=== PATIENT | male | born 1955 | race Two or more races ===

== ENCOUNTER 2021-05-16 17:58 | Inpatient (IN) | payer MEDICARE, MEDICAID ==
[~2021-05-16] VITALS: Ht 175.3 cm; Wt 64.0 kg
[~2021-05-16 17:58] MED LIST: P20 MT
[2021-05-16] MEDS ORDERED: IPRATROPIUM BROMIDE (0.02%) 0.5MG/2.5ML NEB HHN STA (18:53)
[2021-05-16] MEDS ORDERED: ALBUTEROL (0.083%) 2.5MG/3ML NEB HHN STA (18:53)
[2021-05-16] MEDS ORDERED: METHYLPREDNISOLONE SOD SUCC 125 MG/2 ML VIAL IV STA (18:53)
[2021-05-16] MEDS ORDERED: MAGNESIUM 2 G PREMIX 50 ML IV ONE (19:00)
[2021-05-16 19:30] LABS: BASOPHILS % 0.8 % (0.0-2.0); EOSINOPHILS % 1.9 % (0.0-5.0); HEMATOCRIT. 37.5 % (42.0-52.0); HEMOGLOBIN. 12.3 g/dL (14.0-18.0); LYMPHOCYTES % 35.7 % (20.0-50.0); MEAN CORPUSCULAR HEMOGLOBIN 27.3 pg (28.0-32.0); MEAN CORPUSCULAR VOLUME 83.7 fL (80.0-94.0); MONOCYTES % 8.8 % (2.0-8.0); NEUTROPHILS % 52.8 % (40.0-76.0); PLATELET 280 x1000/uL (130-400); RED BLOOD CELL COUNT 4.49 mill/uL (4.7-6.1); RED CELL DISTRIBUTION WIDTH 20.9 % (11.6-14.6)
[2021-05-16 19:33] LABS: CHLORIDE 105 mEq/L (98-107)
[2021-05-16] MEDS ORDERED: CEFTRIAXONE 1 G PREMIX 50 ML IV ONE (20:45)
[2021-05-16] MEDS ORDERED: AZITHROMYCIN 500MG/250ML 250 ML IV ONE (20:45)
[2021-05-16 21:15] LABS: CLARITY URINE CLEAR (CLEAR); COLOR URINE YELLOW (YELLOW); KETONES URINE NEGATIVE (NEGATIVE); LEUKOCYTE ESTERASE URINE NEGATIVE (NEGATIVE); NITRITE URINE NEGATIVE (NEGATIVE); OCCULT BLOOD URINE NEGATIVE (NEGATIVE); PH URINE 6.5 (4.5-8.0); PROTEIN URINE NEGATIVE (NEGATIVE); SPECIFIC GRAVITY URINE 1.009 (1.005-1.030); UROBILINOGEN URINE 0.2 E.U./dL (0.2-1.0)
[2021-05-16] MEDS: LIDOCAINE 5% PATCH TOP SCH (22:45)
[2021-05-16] MEDS ORDERED: ACETAMINOPHEN 325MG TABLET PO ONE (22:45)
[2021-05-17] MEDS: LIDOCAINE 5% PATCH TOP SCH (08:50)
[2021-05-17] MEDS ORDERED: ONDANSETRON HCL 4MG/2ML INJ IV PRN (10:30)
[2021-05-17] MEDS ORDERED: ACETAMINOPHEN 325MG TABLET PO PRN (10:30)
[2021-05-17] MEDS: METHYLPREDNISOLONE SOD SUCC 40 MG/ML VIAL IV SCH ×3 (10:56→21:07)
[2021-05-17] MEDS: ALBUTEROL 6.7GM HFA INHALER ORI PRN (11:02)
[2021-05-17] MEDS: LEVOFLOXACIN 500MG PREMIX 100 ML IV SCH (11:52)
[2021-05-17] MEDS: AMLODIPINE 10MG TABLET PO SCH (11:55)
[2021-05-17] MEDS ORDERED: ENOXAPARIN 40MG/0.4ML SYR SUBCUT SCH (20:00)
[2021-05-18] MEDS: METHYLPREDNISOLONE SOD SUCC 40 MG/ML VIAL IV SCH ×2 (05:29→14:33)
[2021-05-18] MEDS: AMLODIPINE 10MG TABLET PO SCH (08:56)
[2021-05-18] MEDS: ALBUTEROL 6.7GM HFA INHALER ORI PRN (09:45)
[2021-05-18] MEDS: LEVOFLOXACIN 500MG PREMIX 100 ML IV SCH (11:21)
[2021-05-18] MEDS ORDERED: P20 MT (12:39)
[2021-05-18] MEDS ORDERED: IPRA3AMP9 NEB (12:39)
[2021-05-18] MEDS ORDERED: FLUT1DIS3 INH (12:39)
[2021-05-18] MEDS ORDERED: ALBU18HF2 IH (12:39)
[2021-05-18 17:15] VITALS: BP 142/86
[2021-05-20] MEDS ORDERED: LEVOFLOXACIN 500MG TABLET PO SCH (11:00)
== END 2021-05-18 17:15 | disposition home or self-care (01) | DRG 133 ==
LOC: ER 17:58 → MICUSO 23:00 → CANBEDREQ 05-18 21:12
PROVIDERS: ADMIT Internal Medicine Pulmonary Disease; ATTEND Internal Medicine Pulmonary Disease
DX: J96.20 Acute and chronic respiratory failure, unspecified whether with hypoxia or hypercapnia (principal); U07.1 COVID-19; J44.1 Chronic obstructive pulmonary disease with (acute) exacerbation; D64.9 Anemia, unspecified; I10 Essential (primary) hypertension; E11.9 Type 2 diabetes mellitus without complications; K40.90 Unilateral inguinal hernia, without obstruction or gangrene, not specified as recurrent; Z79.899 Other long term (current) drug therapy; Z87.891 Personal history of nicotine dependence
CPT/HCPCS: 36415; 71045; 76870; 80053; 81003; 83880; 84484; 85025; 87426; 93005; 93976; 94640; 99285; J0456; J0696; J1650; J1956; J2920; J2930; J3475; U0003; U0005

== ENCOUNTER 2021-08-11 16:50 | Inpatient (IN) | payer MEDICARE, OTHER ==
[~2021-08-11] VITALS: Ht 180.3 cm; Wt 56.7 kg
[~2021-08-11 16:50] MED LIST changes: +ALBU18HF2 IH; +DIAZ10TA PO; +FLUT1DIS3 INH; +HYDR-4009 MT; +IPRA3AMP9 NEB; +LEVO750T46 MT; +MED4 MT; -P20 MT
[2021-08-11] MEDS ORDERED: METHYLPREDNISOLONE SOD SUCC 125 MG/2 ML VIAL IV ONE (17:00)
[2021-08-11] MEDS ORDERED: ALBUTEROL (0.083%) 2.5MG/3ML NEB HHN ONE (17:00)
[2021-08-11] MEDS ORDERED: CEFTRIAXONE 1 G PREMIX 50 ML IV ONE (17:15)
[2021-08-11] MEDS ORDERED: AZITHROMYCIN 500 MG in DEXT 5% WATER 250 ML IV SCH (17:15)
[2021-08-11 17:16] LABS: BASOPHILS % 0.2 % (0.0-2.0); EOSINOPHILS % 0.7 % (0.0-5.0); HEMATOCRIT. 36.3 % (42.0-52.0); HEMOGLOBIN. 12.1 g/dL (14.0-18.0); LYMPHOCYTES % 17.9 % (20.0-50.0); MEAN CORPUSCULAR HEMOGLOBIN 26.4 pg (28.0-32.0); MEAN CORPUSCULAR VOLUME 79.2 fL (80.0-94.0); MONOCYTES % 8.8 % (2.0-8.0); NEUTROPHILS % 72.4 % (40.0-76.0); PLATELET 265 x1000/uL (130-400); RED BLOOD CELL COUNT 4.59 mill/uL (4.7-6.1); RED CELL DISTRIBUTION WIDTH 20.9 % (11.6-14.6)
[2021-08-11 17:22] LABS: CHLORIDE 96 mEq/L (98-107)
[2021-08-11] MEDS ORDERED: SODIUM CHLORIDE 0.9% 1,000 ML IV ONE (17:30)
[2021-08-11 17:38] LABS: BG BASE EXCESS 3.3 mmol/L (-2.0-2.0); BG CARBOXYHEMOGLOBIN 2.5 % (0.5-1.5); BG DEOXYHEMOGLOBIN 0.3 % (0.0-5.0); BG FRACTION INSPIRED OXYGEN 50; BG HCO3 ACT 30.2 mmol/L (22.0-26.0); BG METHEMOGLOBIN 0.1 % (0.0-1.5); BG OXYGEN SATURATION 99.7 % (92.0-98.5); BG OXYHEMOGLOBIN 97.1 % (94.0-97.0); BG PCO2 56.4 mmHg (35.0-45.0); BG PH 7.346 (7.350-7.450); BG PO2 170.1 mmHg (75.0-100.0); BG SAMPLE SITE RIGHT RADIAL; BG TOTAL HEMOGLOBIN 12.2 g/dL (12.0-18.0); BG VENT MODE MASK - BIPAP
[2021-08-11] MEDS ORDERED: CEFTRIAXONE 1,000 MG in DEXTROSE 5% WATER 50 ML IV SCH ×2 (18:00→23:00)
[2021-08-11 21:52] VITALS: BP 161/88
[2021-08-11 22:17] VITALS: BP 161/88
[2021-08-11] MEDS ORDERED: CLONIDINE 0.1MG TABLET PO PRN (22:45)
[2021-08-11] MEDS: LORAZEPAM 0.5MG TABLET PO PRN (23:23)
[2021-08-11] MEDS: OXYCODONE HCL 5MG TABLET PO PRN (23:23)
[2021-08-11] MEDS: METHYLPREDNISOLONE SOD SUCC 40 MG/ML VIAL IV SCH (23:24)
[2021-08-12] VITALS: BP 157/95
[2021-08-12 01:37] LABS: CREATINE KINASE 179 IU/L (39-308)
[2021-08-12 01:38] LABS: CREATINE KINASE MB FRACTION 4.7 ng/mL (0.5-3.6)
[2021-08-12 02:36] LABS: *AMPHETAMINES SCREEN URINE NEGATIVE (NEGATIVE); *COCAINE SCREEN URINE NEGATIVE (NEGATIVE); CANNABINOID URINE SCREEN NEGATIVE (NEGATIVE); METHADONE URINE SCREEN NEGATIVE (NEGATIVE); OPIATES URINE SCREEN NEGATIVE (NEGATIVE); PHENCYCLIDINE URINE SCREEN NEGATIVE (NEGATIVE)
[2021-08-12 02:37] LABS: *BARBITURATES SCREEN URINE NEGATIVE (NEGATIVE); *BENZODIAZEPINES SCREEN URINE NEGATIVE (NEGATIVE)
[2021-08-12 04:00] VITALS: BP 150/85
[2021-08-12] MEDS: OXYCODONE HCL 5MG TABLET PO PRN (05:51)
[2021-08-12] MEDS: METHYLPREDNISOLONE SOD SUCC 40 MG/ML VIAL IV SCH ×3 (05:52→23:07)
[2021-08-12 08:00] VITALS: BP 118/88
[2021-08-12 08:15] LABS: CHLORIDE 96 mEq/L (98-107)
[2021-08-12 08:17] LABS: HEMATOCRIT 36.9 % (42.0-52.0); HEMOGLOBIN 12.1 g/dL (14.0-18.0); MEAN CORPUSCULAR VOLUME 79.5 fL (80.0-94.0); PLATELET 239 x1000/uL (130-400); RED BLOOD CELL COUNT 4.64 mill/uL (4.7-6.1)
[2021-08-12] MEDS: PANTOPRAZOLE SODIUM 40 MG/VIAL IV SCH (08:44)
[2021-08-12] MEDS: ENOXAPARIN 40MG/0.4ML SYR SUBCUT SCH (08:45)
[2021-08-12] MEDS: LORAZEPAM 0.5MG TABLET PO PRN (11:01)
[2021-08-12] MEDS ORDERED: NALOXONE HCL 1 MG/ML 2ML VIAL IV PRN (11:15)
[2021-08-12 11:19] LABS: BG BASE EXCESS 4.9 mmol/L (-2.0-2.0); BG CARBOXYHEMOGLOBIN 0.8 % (0.5-1.5); BG DEOXYHEMOGLOBIN 3.4 % (0.0-5.0); BG HCO3 ACT 29.5 mmol/L (22.0-26.0); BG METHEMOGLOBIN 0.1 % (0.0-1.5); BG OXYGEN SATURATION 96.6 % (92.0-98.5); BG OXYHEMOGLOBIN 95.7 % (94.0-97.0); BG PCO2 43.7 mmHg (35.0-45.0); BG PH 7.447 (7.350-7.450); BG PO2 76.1 mmHg (75.0-100.0); BG SAMPLE SITE RIGHT BRACHIAL; BG VENT MODE NASAL CANNULA
[2021-08-12 12:00] VITALS: BP 143/77
[2021-08-12] MEDS: HYDROCODONE/ACETAMINOPHEN 10/325MG TABLET PO PRN ×2 (12:16→18:19)
[2021-08-12 16:00] VITALS: BP 138/82
[2021-08-12] MEDS ORDERED: CALCIUM CARBONATE 500MG TABLET CHEW PO PRN (17:00)
[2021-08-12] MEDS ORDERED: AZITHROMYCIN 500 MG in DEXT 5% WATER 250 ML IV SCH (17:00)
[2021-08-12] MEDS: NICOTINE 14MG PATCH TD SCH (17:16)
[2021-08-12] MEDS ORDERED: CEFTRIAXONE 1,000 MG in DEXTROSE 5% WATER 50 ML IV SCH (18:00)
[2021-08-12] MEDS: IPRATROPIUM/ALBUTEROL 0.5-3(2.5)MG/3ML NEB HHN PRN ×2 (18:34→21:54)
[2021-08-12 20:00] VITALS: BP 140/70
[2021-08-12] MEDS ORDERED: NALOXONE HCL 0.4MG/ML VIAL IV PRN (23:15)
[2021-08-13] VITALS: BP 141/78
[2021-08-13] MEDS: HYDROCODONE/ACETAMINOPHEN 10/325MG TABLET PO PRN ×4 (00:20→21:44)
[2021-08-13] MEDS: IPRATROPIUM/ALBUTEROL 0.5-3(2.5)MG/3ML NEB HHN PRN ×2 (01:36→09:10)
[2021-08-13 04:00] VITALS: BP 146/71
[2021-08-13] MEDS: LORAZEPAM 0.5MG TABLET PO PRN ×3 (04:37→21:32)
[2021-08-13] MEDS: HYDROCODONE/ACETAMINOPHEN 5/325MG TABLET PO PRN (04:38)
[2021-08-13] MEDS: METHYLPREDNISOLONE SOD SUCC 40 MG/ML VIAL IV SCH ×3 (05:52→21:45)
[2021-08-13 06:11] LABS: CHLORIDE 96 mEq/L (98-107)
[2021-08-13 06:12] LABS: BASOPHILS % 0.1 % (0.0-2.0); HEMATOCRIT. 35.8 % (42.0-52.0); HEMOGLOBIN. 11.8 g/dL (14.0-18.0); LYMPHOCYTES % 9.6 % (20.0-50.0); MEAN CORPUSCULAR HEMOGLOBIN 25.8 pg (28.0-32.0); MEAN CORPUSCULAR VOLUME 78.3 fL (80.0-94.0); MEAN PLATELET VOLUME 8.2 fl (7.4-10.4); MONOCYTES % 5.9 % (2.0-8.0); NEUTROPHILS % 84.4 % (40.0-76.0); PLATELET 288 x1000/uL (130-400); RED BLOOD CELL COUNT 4.57 mill/uL (4.7-6.1); RED CELL DISTRIBUTION WIDTH 21.1 % (11.6-14.6)
[2021-08-13 08:00] VITALS: BP 157/70
[2021-08-13] MEDS: PANTOPRAZOLE SODIUM 40 MG/VIAL IV SCH (08:56)
[2021-08-13] MEDS: NICOTINE 14MG PATCH TD SCH (08:57)
[2021-08-13] MEDS: ENOXAPARIN 40MG/0.4ML SYR SUBCUT SCH (08:57)
[2021-08-13 12:00] VITALS: BP 153/95
[2021-08-13] MEDS: IPRATROPIUM/ALBUTEROL 0.5-3(2.5)MG/3ML NEB HHN SCH ×2 (14:46→20:53)
[2021-08-13 16:00] VITALS: BP 147/83
[2021-08-13 20:00] VITALS: BP 154/90
[2021-08-13] MEDS: FLUTICASONE PROPIONATE 50MCG/SPRAY BOTTLE BOTHNSTRLS SCH (20:45)
[2021-08-14] VITALS: BP 139/78
[2021-08-14] MEDS: IPRATROPIUM/ALBUTEROL 0.5-3(2.5)MG/3ML NEB HHN SCH ×4 (02:13→21:47)
[2021-08-14 04:00] VITALS: BP 133/86
[2021-08-14] MEDS: METHYLPREDNISOLONE SOD SUCC 40 MG/ML VIAL IV SCH (05:50)
[2021-08-14 06:10] LABS: CHLORIDE 99 mEq/L (98-107)
[2021-08-14 06:16] LABS: BASOPHILS % 0.2 % (0.0-2.0); HEMATOCRIT. 38.5 % (42.0-52.0); HEMOGLOBIN. 12.7 g/dL (14.0-18.0); LYMPHOCYTES % 10.3 % (20.0-50.0); MEAN CORPUSCULAR HEMOGLOBIN 25.9 pg (28.0-32.0); MEAN CORPUSCULAR VOLUME 78.5 fL (80.0-94.0); MEAN PLATELET VOLUME 7.9 fl (7.4-10.4); MONOCYTES % 6.8 % (2.0-8.0); NEUTROPHILS % 82.7 % (40.0-76.0); PLATELET 300 x1000/uL (130-400); RED CELL DISTRIBUTION WIDTH 21.2 % (11.6-14.6)
[2021-08-14 08:00] VITALS: BP 160/100
[2021-08-14] MEDS: FLUTICASONE PROPIONATE 50MCG/SPRAY BOTTLE BOTHNSTRLS SCH ×2 (08:07→20:01)
[2021-08-14] MEDS: NICOTINE 14MG PATCH TD SCH (09:19)
[2021-08-14] MEDS: ENOXAPARIN 40MG/0.4ML SYR SUBCUT SCH (09:19)
[2021-08-14] MEDS: PANTOPRAZOLE SODIUM 40 MG/VIAL IV SCH (09:19)
[2021-08-14] MEDS: HYDROCODONE/ACETAMINOPHEN 10/325MG TABLET PO PRN ×3 (09:20→22:06)
[2021-08-14] MEDS: LORAZEPAM 0.5MG TABLET PO PRN ×2 (10:57→20:01)
[2021-08-14 12:00] VITALS: BP 136/79
[2021-08-14] MEDS: BUDESONIDE 0.5MG/2ML NEB HHN SCH ×2 (15:37→21:47)
[2021-08-14 16:00] VITALS: BP 119/80
[2021-08-14 20:00] VITALS: BP 124/76
[2021-08-15] VITALS: BP 136/74
[2021-08-15] MEDS: IPRATROPIUM/ALBUTEROL 0.5-3(2.5)MG/3ML NEB HHN SCH ×2 (03:10→09:30)
[2021-08-15 04:00] VITALS: BP 127/77
[2021-08-15] MEDS: HYDROCODONE/ACETAMINOPHEN 10/325MG TABLET PO PRN (06:10)
[2021-08-15] MEDS ORDERED: FAMOTIDINE 20MG TABLET PO SCH (06:40)
[2021-08-15 08:00] VITALS: BP 132/106
[2021-08-15] MEDS: ENOXAPARIN 40MG/0.4ML SYR SUBCUT SCH (08:32)
[2021-08-15] MEDS: NICOTINE 14MG PATCH TD SCH (08:32)
[2021-08-15] MEDS: FLUTICASONE PROPIONATE 50MCG/SPRAY BOTTLE BOTHNSTRLS SCH (08:32)
[2021-08-15] MEDS ORDERED: FAMO20TA8 MT (08:52)
[2021-08-15] MEDS ORDERED: NICO-645 TP (08:52)
[2021-08-15] MEDS ORDERED: P20 MT (08:52)
[2021-08-15] MEDS ORDERED: ALBU18HF2 IH (08:52)
[2021-08-15] MEDS ORDERED: FLUT1DIS3 INH (08:52)
[2021-08-15] MEDS ORDERED: PREDNISONE 20MG TABLET PO SCH (09:00)
[2021-08-15 09:07] LABS: ABSOLUTE LYMPHOCYTES 0.6 x10E3/uL (0.7-3.1); ABSOLUTE MONOCYTES 0.4 x10E3/uL (0.1-0.9); ABSOLUTE NEUTROPHILS 4.8 x10E3/uL (1.4-7.0); BASOPHILS 0 % (Not Estab.); HEMATOCRIT 38.9 % (37.5-51.0); IMMATURE GRANULOCYTES 0 % (Not Estab.); LYMPHOCYTES 10 % (Not Estab.); MEAN CORPUSCULAR HEMOGLOBIN 25.3 pg (26.6-33.0); MEAN CORPUSCULAR HGB CONC. 33.4 g/dL (31.5-35.7); MEAN CORPUSCULAR VOLUME 76 fL (79-97); MONOCYTES 6 % (Not Estab.); NEUTROPHILS 84 % (Not Estab.); PLATELETS 338 x10E3/uL (150-450); RBC 5.13 x10E6/uL (4.14-5.80); RED CELL DISTRIBUTION WIDTH 19.3 % (11.6-15.4); WBC 5.8 x10E3/uL (3.4-10.8)
[2021-08-15] MEDS: BUDESONIDE 0.5MG/2ML NEB HHN SCH (09:29)
[2021-08-15 10:08] LABS: % CD 3 POS. LYMPHOCYTES 72.6 % (57.5-86.2); % CD 4 POS. LYMPHOCYTES 31.2 % (30.8-58.5); % CD 8 POS. LYMPH 43.1 % (12.0-35.5); ABSOLUTE CD 3 436 /uL (622-2402); ABSOLUTE CD 4 HELPER 187 /uL (359-1519); ABSOLUTE CD 8 SUPPRESSOR 259 /uL (109-897); CD4/CD8 RATIO 0.72 (0.92-3.72)
[2021-08-15] MEDS: LORAZEPAM 0.5MG TABLET PO PRN (10:15)
[2021-08-15 11:09] VITALS: BP 124/85
[2021-08-15] MEDS: HYDROCODONE/ACETAMINOPHEN 5/325MG TABLET PO PRN (11:45)
[2021-08-15 11:52] VITALS: BP 124/85
== END 2021-08-15 12:30 | disposition home or self-care (01) | DRG 133 ==
LOC: ER 16:50 → 7EST 19:56 → EDBEDREQTM 20:11 → EDBEDREQ 20:11 → ENRESERV 20:38
PROVIDERS: ADMIT Internal Medicine; ATTEND Internal Medicine
PROC: 5A09357 Assistance with Respiratory Ventilation, Less than 24 Consecutive Hours, Continuous Positive Airway Pressure (ICD-10-PCS; principal; 2021-08-11)
DX: J96.01 Acute respiratory failure with hypoxia (principal); E87.2 Acidosis; I27.21 Secondary pulmonary arterial hypertension; F13.20 Sedative, hypnotic or anxiolytic dependence, uncomplicated; J44.1 Chronic obstructive pulmonary disease with (acute) exacerbation; J96.02 Acute respiratory failure with hypercapnia; D50.9 Iron deficiency anemia, unspecified; F17.210 Nicotine dependence, cigarettes, uncomplicated; M54.50 Low back pain, unspecified; F41.9 Anxiety disorder, unspecified; Z20.822 Contact with and (suspected) exposure to COVID-19; K40.90 Unilateral inguinal hernia, without obstruction or gangrene, not specified as recurrent; N43.3 Hydrocele, unspecified; F11.20 Opioid dependence, uncomplicated; I50.9 Heart failure, unspecified; I07.1 Rheumatic tricuspid insufficiency; I11.0 Hypertensive heart disease with heart failure; G89.29 Other chronic pain; Z86.16 Personal history of COVID-19; Z99.81 Dependence on supplemental oxygen; Z79.899 Other long term (current) drug therapy; Z71.6 Tobacco abuse counseling; Z21 Asymptomatic human immunodeficiency virus [HIV] infection status; R00.0 Tachycardia, unspecified
CPT/HCPCS: 36415; 36600; 71045; 76870; 80048; 80053; 80305; 82375; 82550; 82553; 82805; 83605; 83735; 83880; 84145; 84484; 85025; 85027; 86359; 86360; 87426; 93005; 93306; 93976; 94640; 94644; 94660; 97162; 99285; C9113; J0456; J0696; J1650; J2920; J2930; J7030; J7060; J7512; J7626

== ENCOUNTER 2021-09-23 08:40 | Inpatient (IN) | payer MEDICARE, OTHER ==
[2021-09-23] VITALS (13 sets, daily range): BP systolic 121–153; BP diastolic 78–98
[~2021-09-23] VITALS: Ht 180.3 cm; Wt 54.9 kg
[~2021-09-23 08:40] MED LIST changes: +FAMO20TA8 MT; -LEVO750T46 MT; -MED4 MT; +NICO-645 TP; +P20 MT
[2021-09-23] MEDS ORDERED: VECURONIUM BROMIDE 10 MG/VIAL IV ONE (09:00)
[2021-09-23] MEDS ORDERED: ETOMIDATE 2MG/ML 10ML VIAL IV ONE (09:00)
[2021-09-23] MEDS ORDERED: MIDAZOLAM HCL 2 MG/2 ML VIAL IV ONE (09:15)
[2021-09-23] MEDS ORDERED: METHYLPREDNISOLONE SOD SUCC 125 MG/2 ML VIAL IV ONE (09:15)
[2021-09-23 09:55] LABS: BASOPHILS % 0.6 % (0.0-2.0); EOSINOPHILS % 2.2 % (0.0-5.0); HEMATOCRIT. 39.2 % (42.0-52.0); HEMOGLOBIN. 12.4 g/dL (14.0-18.0); MEAN CORPUSCULAR HEMOGLOBIN 25.5 pg (28.0-32.0); MEAN PLATELET VOLUME 7.8 fl (7.4-10.4); MONOCYTES % 2.8 % (2.0-8.0); NEUTROPHILS % 72.4 % (40.0-76.0); PLATELET 326 x1000/uL (130-400); RED BLOOD CELL COUNT 4.85 mill/uL (4.7-6.1); RED CELL DISTRIBUTION WIDTH 23.2 % (11.6-14.6)
[2021-09-23 10:05] LABS: CHLORIDE 108 mEq/L (98-107)
[2021-09-23] MEDS ORDERED: CEFTRIAXONE 1 G PREMIX 50 ML IV ONE (10:15)
[2021-09-23 10:16] LABS: BG BASE EXCESS -2.2 mmol/L (-2.0-2.0); BG CARBOXYHEMOGLOBIN 2.3 % (0.5-1.5); BG DEOXYHEMOGLOBIN 0.3 % (0.0-5.0); BG HCO3 ACT 29.9 mmol/L (22.0-26.0); BG METHEMOGLOBIN 0.5 % (0.0-1.5); BG OXYGEN SATURATION 99.7 % (92.0-98.5); BG OXYHEMOGLOBIN 96.9 % (94.0-97.0); BG PCO2 95.6 mmHg (35.0-45.0); BG PH 7.113 (7.350-7.450); BG PO2 464.4 mmHg (75.0-100.0); BG SAMPLE SITE RIGHT BRACHIAL; BG TOTAL HEMOGLOBIN 13.5 g/dL (12.0-18.0)
[2021-09-23 10:16] LABS: ETHANOL BLOOD < 10 mg/dL
[2021-09-23 10:36] LABS: PLATELET ESTIMATE NORMAL
[2021-09-23 11:10] LABS: *AMPHETAMINES SCREEN URINE NEGATIVE (NEGATIVE); *BARBITURATES SCREEN URINE NEGATIVE (NEGATIVE); *BENZODIAZEPINES SCREEN URINE PRESUMTIVE POSITIVE (NEGATIVE); *COCAINE SCREEN URINE NEGATIVE (NEGATIVE); CANNABINOID URINE SCREEN NEGATIVE (NEGATIVE); METHADONE URINE SCREEN NEGATIVE (NEGATIVE); OPIATES URINE SCREEN NEGATIVE (NEGATIVE); PHENCYCLIDINE URINE SCREEN NEGATIVE (NEGATIVE)
[2021-09-23] MEDS ORDERED: METHYLPREDNISOLONE SOD SUCC 40 MG/ML VIAL IV SCH (12:30)
[2021-09-23] MEDS ORDERED: CLONIDINE 0.1MG TABLET PO PRN (12:30)
[2021-09-23] MEDS ORDERED: NON FORMULARY PATIENT HOME MED XX SCH (12:30)
[2021-09-23] MEDS ORDERED: HYDROCODONE/ACETAMINOPHEN 5/325MG TABLET PO PRN (12:30)
[2021-09-23] MEDS ORDERED: ONDANSETRON HCL 4MG/2ML INJ IV PRN (12:30)
[2021-09-23] MEDS ORDERED: ACETAMINOPHEN 325MG TABLET PO PRN ×2 (12:30)
[2021-09-23] MEDS ORDERED: IPRATROPIUM/ALBUTEROL 0.5-3(2.5)MG/3ML NEB HHN PRN (12:30)
[2021-09-23] MEDS: PROPOFOL 10MG/ML 100ML 100 ML IV SCH ×4 (13:12→23:06)
[2021-09-23 14:48] LABS: BG BASE EXCESS 2.1 mmol/L (-2.0-2.0); BG CARBOXYHEMOGLOBIN 1.9 % (0.5-1.5); BG DEOXYHEMOGLOBIN 0.9 % (0.0-5.0); BG FRACTION INSPIRED OXYGEN 50; BG HCO3 ACT 28.9 mmol/L (22.0-26.0); BG METHEMOGLOBIN 0.4 % (0.0-1.5); BG OXYGEN SATURATION 99.1 % (92.0-98.5); BG OXYHEMOGLOBIN 96.8 % (94.0-97.0); BG PCO2 55.1 mmHg (35.0-45.0); BG PH 7.338 (7.350-7.450); BG PO2 115.3 mmHg (75.0-100.0); BG SAMPLE SITE RIGHT RADIAL; BG TOTAL HEMOGLOBIN 12.8 g/dL (12.0-18.0); BG VENT MODE VENT - AC
[2021-09-23] MEDS ORDERED: AZITHROMYCIN 500 MG in DEXT 5% WATER 250 ML IV SCH (15:00)
[2021-09-23] MEDS: ENOXAPARIN 40MG/0.4ML SYR SUBCUT SCH (16:05)
[2021-09-23] MEDS: METHYLPREDNISOLONE SOD SUCC 40 MG/ML VIAL IV SCH ×2 (16:05→21:07)
[2021-09-23] MEDS: FAMOTIDINE 20MG/2ML VIAL IV SCH (16:08)
[2021-09-23] MEDS ORDERED: FAMOTIDINE 20MG TABLET PO SCH (17:00)
[2021-09-24] VITALS (40 sets, daily range): BP systolic 117–169; BP diastolic 75–106
[2021-09-24] MEDS: PROPOFOL 10MG/ML 100ML 100 ML IV SCH ×2 (03:20→08:01)
[2021-09-24] MEDS: METHYLPREDNISOLONE SOD SUCC 40 MG/ML VIAL IV SCH ×3 (05:00→21:26)
[2021-09-24 05:40] LABS: BASOPHILS % 0.4 % (0.0-2.0); HEMOGLOBIN. 11.9 g/dL (14.0-18.0); LYMPHOCYTES % 25.2 % (20.0-50.0); MEAN CORPUSCULAR HEMOGLOBIN 27.2 pg (28.0-32.0); MEAN CORPUSCULAR VOLUME 82.6 fL (80.0-94.0); MONOCYTES % 5.9 % (2.0-8.0); NEUTROPHILS % 68.5 % (40.0-76.0); PLATELET 284 x1000/uL (130-400); RED BLOOD CELL COUNT 4.36 mill/uL (4.7-6.1)
[2021-09-24 05:48] LABS: CHLORIDE 103 mEq/L (98-107)
[2021-09-24] MEDS: FAMOTIDINE 20MG/2ML VIAL IV SCH ×2 (08:01→16:07)
[2021-09-24 08:54] LABS: BG BASE EXCESS -1.3 mmol/L (-2.0-2.0); BG CARBOXYHEMOGLOBIN 0.4 % (0.5-1.5); BG DEOXYHEMOGLOBIN 0.4 % (0.0-5.0); BG FRACTION INSPIRED OXYGEN 50; BG HCO3 ACT 23.1 mmol/L (22.0-26.0); BG METHEMOGLOBIN 0.4 % (0.0-1.5); BG OXYGEN SATURATION 99.6 % (92.0-98.5); BG OXYHEMOGLOBIN 98.8 % (94.0-97.0); BG PH 7.402 (7.350-7.450); BG PO2 149.9 mmHg (75.0-100.0); BG SAMPLE SITE RIGHT RADIAL; BG TOTAL HEMOGLOBIN 12.5 g/dL (12.0-18.0); BG VENT MODE VENT - AC
[2021-09-24] MEDS ORDERED: CEFTRIAXONE SODIUM 1 G/VIAL IM SCH (09:00)
[2021-09-24] MEDS: CEFTRIAXONE 1,000 MG in DEXTROSE 5% WATER 50 ML IV SCH (10:20)
[2021-09-24] MEDS: PROPOFOL 10MG/ML 100ML 100 ML IV PRN ×3 (11:38→21:23)
[2021-09-24] MEDS: BLOOD SUGAR DIAGNOSTIC STRIP TEST SCH ×3 (12:50→21:23)
[2021-09-24] MEDS: ENOXAPARIN 40MG/0.4ML SYR SUBCUT SCH (14:37)
[2021-09-24] MEDS: AZITHROMYCIN 500 MG in DEXT 5% WATER 250 ML IV SCH (16:07)
[2021-09-24 17:02] LABS: BG BASE EXCESS 3.7 mmol/L (-2.0-2.0); BG CARBOXYHEMOGLOBIN 0.6 % (0.5-1.5); BG DEOXYHEMOGLOBIN 2.3 % (0.0-5.0); BG FRACTION INSPIRED OXYGEN 40; BG METHEMOGLOBIN 0.3 % (0.0-1.5); BG OXYGEN SATURATION 97.7 % (92.0-98.5); BG OXYHEMOGLOBIN 96.8 % (94.0-97.0); BG PCO2 46.5 mmHg (35.0-45.0); BG PH 7.413 (7.350-7.450); BG PO2 91.4 mmHg (75.0-100.0); BG SAMPLE SITE RIGHT RADIAL; BG TOTAL HEMOGLOBIN 12.7 g/dL (12.0-18.0); BG VENT MODE VENT - AC
[2021-09-25] VITALS (48 sets, daily range): BP systolic 111–171; BP diastolic 70–108
[2021-09-25] MEDS: PROPOFOL 10MG/ML 100ML 100 ML IV PRN ×5 (02:03→19:36)
[2021-09-25] MEDS: CLONIDINE 0.1MG TABLET PO PRN ×2 (06:02→17:44)
[2021-09-25] MEDS: METHYLPREDNISOLONE SOD SUCC 40 MG/ML VIAL IV SCH ×3 (06:03→22:26)
[2021-09-25 06:31] LABS: CHLORIDE 104 mEq/L (98-107)
[2021-09-25 06:36] LABS: BASOPHILS % 0.2 % (0.0-2.0); HEMATOCRIT. 37.9 % (42.0-52.0); HEMOGLOBIN. 12.3 g/dL (14.0-18.0); MEAN CORPUSCULAR HEMOGLOBIN 25.5 pg (28.0-32.0); MEAN CORPUSCULAR VOLUME 78.4 fL (80.0-94.0); MONOCYTES % 6.7 % (2.0-8.0); NEUTROPHILS % 81.1 % (40.0-76.0); PLATELET 288 x1000/uL (130-400); RED BLOOD CELL COUNT 4.83 mill/uL (4.7-6.1); RED CELL DISTRIBUTION WIDTH 22.8 % (11.6-14.6)
[2021-09-25] MEDS: BLOOD SUGAR DIAGNOSTIC STRIP TEST SCH ×3 (07:50→17:29)
[2021-09-25] MEDS: FAMOTIDINE 20MG/2ML VIAL IV SCH ×2 (08:32→16:00)
[2021-09-25] MEDS: CEFTRIAXONE 1,000 MG in DEXTROSE 5% WATER 50 ML IV SCH (08:32)
[2021-09-25 09:53] LABS: BG CARBOXYHEMOGLOBIN 0.9 % (0.5-1.5); BG DEOXYHEMOGLOBIN 0.8 % (0.0-5.0); BG FRACTION INSPIRED OXYGEN 40; BG METHEMOGLOBIN 0.3 % (0.0-1.5); BG OXYGEN SATURATION 99.2 % (92.0-98.5); BG PCO2 46.1 mmHg (35.0-45.0); BG PH 7.432 (7.350-7.450); BG PO2 128.2 mmHg (75.0-100.0); BG SAMPLE SITE RIGHT RADIAL; BG TOTAL HEMOGLOBIN 12.1 g/dL (12.0-18.0); BG VENT MODE VENT - AC
[2021-09-25] MEDS ORDERED: NALOXONE HCL 0.4MG/ML VIAL IV PRN (13:00)
[2021-09-25] MEDS ORDERED: FENTANYL CITRATE/PF 2,500 MCG in SODIUM CHLORIDE 0.9% 200 ML IV PRN (13:30)
[2021-09-25] MEDS ORDERED: PROPOFOL 10MG/ML 100ML 100 ML IV PRN (13:30)
[2021-09-25] MEDS: FENTANYL 2500MCG/250ML PMX 250 ML IV PRN (13:53)
[2021-09-25] MEDS: ENOXAPARIN 40MG/0.4ML SYR SUBCUT SCH (15:59)
[2021-09-25] MEDS: AZITHROMYCIN 500 MG in DEXT 5% WATER 250 ML IV SCH (15:59)
[2021-09-25] MEDS: IPRATROPIUM/ALBUTEROL 0.5-3(2.5)MG/3ML NEB HHN SCH (20:29)
[2021-09-26] VITALS (47 sets, daily range): BP systolic 105–153; BP diastolic 69–102
[2021-09-26] MEDS: IPRATROPIUM/ALBUTEROL 0.5-3(2.5)MG/3ML NEB HHN SCH ×4 (00:16→20:20)
[2021-09-26] MEDS: BLOOD SUGAR DIAGNOSTIC STRIP TEST SCH ×4 (00:47→18:00)
[2021-09-26] MEDS: PROPOFOL 10MG/ML 100ML 100 ML IV PRN ×2 (02:47→18:45)
[2021-09-26 05:04] LABS: HEMATOCRIT. 37.7 % (42.0-52.0); HEMOGLOBIN. 12.5 g/dL (14.0-18.0); MEAN CORPUSCULAR HEMOGLOBIN 28.8 pg (28.0-32.0); MEAN CORPUSCULAR VOLUME 86.7 fL (80.0-94.0); MEAN PLATELET VOLUME 8.1 fl (7.4-10.4); PLATELET 266 x1000/uL (130-400); RED BLOOD CELL COUNT 4.35 mill/uL (4.7-6.1); RED CELL DISTRIBUTION WIDTH 23.3 % (11.6-14.6)
[2021-09-26] MEDS: METHYLPREDNISOLONE SOD SUCC 40 MG/ML VIAL IV SCH ×2 (06:09→14:56)
[2021-09-26 06:32] LABS: CHLORIDE 102 mEq/L (98-107)
[2021-09-26 07:49] LABS: PLATELET ESTIMATE NORMAL
[2021-09-26 08:47] LABS: BG CARBOXYHEMOGLOBIN 0.9 % (0.5-1.5); BG DEOXYHEMOGLOBIN 3.2 % (0.0-5.0); BG FRACTION INSPIRED OXYGEN 35; BG HCO3 ACT 31.8 mmol/L (22.0-26.0); BG METHEMOGLOBIN 0.5 % (0.0-1.5); BG OXYGEN SATURATION 96.8 % (92.0-98.5); BG OXYHEMOGLOBIN 95.4 % (94.0-97.0); BG PCO2 51.2 mmHg (35.0-45.0); BG PH 7.411 (7.350-7.450); BG PO2 81.8 mmHg (75.0-100.0); BG SAMPLE SITE RIGHT RADIAL; BG TOTAL HEMOGLOBIN 12.7 g/dL (12.0-18.0); BG VENT MODE VENT - AC
[2021-09-26] MEDS: MULTIVITAMINS,THER W-MINERALS TABLET PO SCH (10:39)
[2021-09-26] MEDS: FOLIC ACID 1MG TABLET PO SCH (10:39)
[2021-09-26] MEDS: THIAMINE HCL 100MG TABLET PO SCH (10:39)
[2021-09-26] MEDS: FAMOTIDINE 20MG/2ML VIAL IV SCH ×2 (10:40→18:45)
[2021-09-26] MEDS: CEFTRIAXONE 1,000 MG in DEXTROSE 5% WATER 50 ML IV SCH (10:40)
[2021-09-26] MEDS ORDERED: LIDOCAINE HCL 1% 10 MG/ML 10ML VIAL ONE (13:02)
[2021-09-26] MEDS: ENOXAPARIN 40MG/0.4ML SYR SUBCUT SCH (14:57)
[2021-09-26] MEDS ORDERED: GENTAMICIN 120MG PREMIX 100 ML IV SCH (15:00)
[2021-09-27] VITALS (49 sets, daily range): BP systolic 94–176; BP diastolic 59–110
[2021-09-27] MEDS: METHYLPREDNISOLONE SOD SUCC 40 MG/ML VIAL IV SCH ×4 (00:04→22:09)
[2021-09-27] MEDS: BLOOD SUGAR DIAGNOSTIC STRIP TEST SCH ×4 (00:04→18:00)
[2021-09-27] MEDS: CEFEPIME 2,000 MG in DEXT 5% WATER 100 ML IV SCH ×3 (00:05→22:09)
[2021-09-27] MEDS: PROPOFOL 10MG/ML 100ML 100 ML IV PRN ×4 (01:59→21:40)
[2021-09-27] MEDS: IPRATROPIUM/ALBUTEROL 0.5-3(2.5)MG/3ML NEB HHN SCH ×4 (02:29→19:47)
[2021-09-27 05:58] LABS: HEMATOCRIT. 39.2 % (42.0-52.0); HEMOGLOBIN. 12.7 g/dL (14.0-18.0); MEAN CORPUSCULAR HEMOGLOBIN 28.9 pg (28.0-32.0); MEAN PLATELET VOLUME 8.4 fl (7.4-10.4); PLATELET 227 x1000/uL (130-400); RED BLOOD CELL COUNT 4.41 mill/uL (4.7-6.1)
[2021-09-27 06:33] LABS: CHLORIDE 106 mEq/L (98-107)
[2021-09-27 07:34] LABS: PLATELET ESTIMATE NORMAL
[2021-09-27] MEDS: MULTIVITAMINS,THER W-MINERALS TABLET PO SCH (08:57)
[2021-09-27] MEDS: THIAMINE HCL 100MG TABLET PO SCH (08:57)
[2021-09-27] MEDS: FAMOTIDINE 20MG/2ML VIAL IV SCH ×2 (08:57→17:16)
[2021-09-27] MEDS: FOLIC ACID 1MG TABLET PO SCH (08:57)
[2021-09-27 09:12] LABS: BG BASE EXCESS 4.1 mmol/L (-2.0-2.0); BG CARBOXYHEMOGLOBIN 0.7 % (0.5-1.5); BG DEOXYHEMOGLOBIN 8.4 % (0.0-5.0); BG FRACTION INSPIRED OXYGEN 30; BG HCO3 ACT 29.2 mmol/L (22.0-26.0); BG METHEMOGLOBIN 0.3 % (0.0-1.5); BG OXYGEN SATURATION 91.5 % (92.0-98.5); BG OXYHEMOGLOBIN 90.6 % (94.0-97.0); BG PH 7.421 (7.350-7.450); BG PO2 58.4 mmHg (75.0-100.0); BG SAMPLE SITE RIGHT BRACHIAL; BG TOTAL HEMOGLOBIN 13.6 g/dL (12.0-18.0); BG VENT MODE VENT - AC
[2021-09-27] MEDS: SULFAMETHOXAZOLE/TRIMETHOPRIM 200-40 MG/5ML 5ML ORAL SYR PO SCH ×2 (10:54→17:16)
[2021-09-27] MEDS: DEXTROSE 50% WATER 50ML SYRINGE IV PRN (11:03)
[2021-09-27] MEDS: ENOXAPARIN 40MG/0.4ML SYR SUBCUT SCH (14:08)
[2021-09-27] MEDS: FENTANYL 2500MCG/250ML PMX 250 ML IV PRN (17:16)
[2021-09-28] VITALS (54 sets, daily range): BP systolic 111–253; BP diastolic 52–169
[2021-09-28] MEDS: IPRATROPIUM/ALBUTEROL 0.5-3(2.5)MG/3ML NEB HHN SCH ×5 (01:52→21:07)
[2021-09-28] MEDS: PROPOFOL 10MG/ML 100ML 100 ML IV PRN ×2 (02:03→09:03)
[2021-09-28] MEDS: BLOOD SUGAR DIAGNOSTIC STRIP TEST SCH ×4 (06:00→17:52)
[2021-09-28] MEDS: METHYLPREDNISOLONE SOD SUCC 40 MG/ML VIAL IV SCH ×2 (06:00→21:40)
[2021-09-28 06:15] LABS: HEMATOCRIT. 37.8 % (42.0-52.0); HEMOGLOBIN. 12.4 g/dL (14.0-18.0); MEAN CORPUSCULAR HEMOGLOBIN 29.2 pg (28.0-32.0); MEAN PLATELET VOLUME 7.8 fl (7.4-10.4); PLATELET 204 x1000/uL (130-400); RED BLOOD CELL COUNT 4.25 mill/uL (4.7-6.1); RED CELL DISTRIBUTION WIDTH 22.9 % (11.6-14.6)
[2021-09-28 06:24] LABS: CHLORIDE 104 mEq/L (98-107)
[2021-09-28 07:55] LABS: PLATELET ESTIMATE NORMAL
[2021-09-28] MEDS: THIAMINE HCL 100MG TABLET PO SCH (08:59)
[2021-09-28] MEDS: FAMOTIDINE 20MG/2ML VIAL IV SCH ×2 (08:59→17:59)
[2021-09-28] MEDS: SULFAMETHOXAZOLE/TRIMETHOPRIM 200-40 MG/5ML 5ML ORAL SYR PO SCH ×2 (09:00→17:59)
[2021-09-28] MEDS: MULTIVITAMINS,THER W-MINERALS TABLET PO SCH (09:00)
[2021-09-28] MEDS: FOLIC ACID 1MG TABLET PO SCH (09:00)
[2021-09-28 09:27] LABS: BG BASE EXCESS 4.7 mmol/L (-2.0-2.0); BG CARBOXYHEMOGLOBIN 1.3 % (0.5-1.5); BG DEOXYHEMOGLOBIN 3.8 % (0.0-5.0); BG FRACTION INSPIRED OXYGEN 40; BG HCO3 ACT 30.3 mmol/L (22.0-26.0); BG METHEMOGLOBIN 0.4 % (0.0-1.5); BG OXYGEN SATURATION 96.1 % (92.0-98.5); BG OXYHEMOGLOBIN 94.5 % (94.0-97.0); BG PCO2 49.2 mmHg (35.0-45.0); BG PH 7.408 (7.350-7.450); BG PO2 73.5 mmHg (75.0-100.0); BG SAMPLE SITE RIGHT RADIAL; BG VENT MODE VENT - AC
[2021-09-28] MEDS: CLONIDINE 0.1MG TABLET PO PRN (11:10)
[2021-09-28] MEDS: CEFEPIME 2,000 MG in DEXT 5% WATER 100 ML IV SCH ×2 (11:10→23:37)
[2021-09-28 11:46] LABS: BG BASE EXCESS 5.6 mmol/L (-2.0-2.0); BG DEOXYHEMOGLOBIN 5.2 % (0.0-5.0); BG FRACTION INSPIRED OXYGEN 40; BG HCO3 ACT 29.8 mmol/L (22.0-26.0); BG METHEMOGLOBIN 0.5 % (0.0-1.5); BG OXYGEN SATURATION 94.7 % (92.0-98.5); BG OXYHEMOGLOBIN 93.3 % (94.0-97.0); BG PH 7.469 (7.350-7.450); BG PO2 65.3 mmHg (75.0-100.0); BG SAMPLE SITE RIGHT BRACHIAL; BG TOTAL HEMOGLOBIN 12.8 g/dL (12.0-18.0); BG VENT MODE VENT - CPAP
[2021-09-28] MEDS: MORPHINE SULFATE 4 MG/ML CPJ (NOT FOR IM USE) IV PRN ×2 (12:54→19:54)
[2021-09-28] MEDS: ENOXAPARIN 40MG/0.4ML SYR SUBCUT SCH (14:38)
[2021-09-28] MEDS: LORAZEPAM 2MG/ML CPJ IV PRN (20:36)
[2021-09-29] VITALS (46 sets, daily range): BP systolic 106–192; BP diastolic 61–109
[2021-09-29] MEDS: IPRATROPIUM/ALBUTEROL 0.5-3(2.5)MG/3ML NEB HHN SCH ×4 (01:22→20:46)
[2021-09-29] MEDS: MORPHINE SULFATE 4 MG/ML CPJ (NOT FOR IM USE) IV PRN ×4 (04:02→23:40)
[2021-09-29 06:08] LABS: BASOPHILS % 0.1 % (0.0-2.0); HEMATOCRIT. 38.2 % (42.0-52.0); HEMOGLOBIN. 12.4 g/dL (14.0-18.0); LYMPHOCYTES % 9.7 % (20.0-50.0); MEAN CORPUSCULAR HEMOGLOBIN 25.7 pg (28.0-32.0); MEAN CORPUSCULAR VOLUME 78.8 fL (80.0-94.0); MONOCYTES % 4.8 % (2.0-8.0); NEUTROPHILS % 85.4 % (40.0-76.0); PLATELET 232 x1000/uL (130-400); RED BLOOD CELL COUNT 4.85 mill/uL (4.7-6.1); RED CELL DISTRIBUTION WIDTH 22.7 % (11.6-14.6)
[2021-09-29 06:25] LABS: CHLORIDE 100 mEq/L (98-107)
[2021-09-29] MEDS: BLOOD SUGAR DIAGNOSTIC STRIP TEST SCH ×4 (06:53→18:04)
[2021-09-29] MEDS: METHYLPREDNISOLONE SOD SUCC 40 MG/ML VIAL IV SCH (09:37)
[2021-09-29] MEDS: FAMOTIDINE 20MG/2ML VIAL IV SCH ×2 (09:37→16:09)
[2021-09-29] MEDS: FOLIC ACID 1MG TABLET PO SCH (09:38)
[2021-09-29] MEDS: MULTIVITAMINS,THER W-MINERALS TABLET PO SCH (09:38)
[2021-09-29] MEDS: THIAMINE HCL 100MG TABLET PO SCH (09:38)
[2021-09-29] MEDS: SULFAMETHOXAZOLE/TRIMETHOPRIM 200-40 MG/5ML 5ML ORAL SYR PO SCH ×2 (09:39→17:00)
[2021-09-29 10:55] LABS: BG BASE EXCESS 4.1 mmol/L (-2.0-2.0); BG DEOXYHEMOGLOBIN 11.8 % (0.0-5.0); BG FRACTION INSPIRED OXYGEN 40; BG HCO3 ACT 27.8 mmol/L (22.0-26.0); BG METHEMOGLOBIN 0.4 % (0.0-1.5); BG OXYHEMOGLOBIN 86.8 % (94.0-97.0); BG PCO2 38.6 mmHg (35.0-45.0); BG PH 7.475 (7.350-7.450); BG PO2 48.4 mmHg (75.0-100.0); BG SAMPLE SITE RIGHT RADIAL; BG TOTAL HEMOGLOBIN 13.9 g/dL (12.0-18.0); BG VENT MODE NASAL CANNULA
[2021-09-29] MEDS: CEFEPIME 2,000 MG in DEXT 5% WATER 100 ML IV SCH ×2 (11:55→23:45)
[2021-09-29] MEDS ORDERED: LORAZEPAM 2MG/ML CPJ IV NR (12:15)
[2021-09-29] MEDS ORDERED: SODIUM CHLORIDE 45ML SPRAY NS PRN (14:00)
[2021-09-29] MEDS: ENOXAPARIN 40MG/0.4ML SYR SUBCUT SCH (16:09)
[2021-09-29] MEDS: GUAIFENESIN 600MG ER TABLET PO SCH (20:30)
[2021-09-29] MEDS: LORAZEPAM 2MG/ML CPJ IV PRN (20:36)
[2021-09-30] VITALS (40 sets, daily range): BP systolic 98–173; BP diastolic 60–115
[2021-09-30] MEDS: BLOOD SUGAR DIAGNOSTIC STRIP TEST SCH ×4 (00:47→18:33)
[2021-09-30] MEDS: MORPHINE SULFATE 4 MG/ML CPJ (NOT FOR IM USE) IV PRN ×3 (00:48→15:01)
[2021-09-30] MEDS: IPRATROPIUM/ALBUTEROL 0.5-3(2.5)MG/3ML NEB HHN SCH ×4 (01:45→20:18)
[2021-09-30] MEDS: LORAZEPAM 2MG/ML CPJ IV PRN ×3 (04:48→16:02)
[2021-09-30 06:59] LABS: HEMOGLOBIN. 13.8 g/dL (14.0-18.0); MEAN CORPUSCULAR HEMOGLOBIN 27.6 pg (28.0-32.0); MEAN CORPUSCULAR VOLUME 82.2 fL (80.0-94.0); MEAN PLATELET VOLUME 8.3 fl (7.4-10.4); PLATELET 241 x1000/uL (130-400); RED BLOOD CELL COUNT 4.98 mill/uL (4.7-6.1); RED CELL DISTRIBUTION WIDTH 22.8 % (11.6-14.6)
[2021-09-30 07:09] LABS: CHLORIDE 100 mEq/L (98-107)
[2021-09-30] MEDS: SULFAMETHOXAZOLE/TRIMETHOPRIM 200-40 MG/5ML 5ML ORAL SYR PO SCH ×2 (08:36→17:48)
[2021-09-30] MEDS: FAMOTIDINE 20MG/2ML VIAL IV SCH ×2 (08:37→17:45)
[2021-09-30] MEDS: METHYLPREDNISOLONE SOD SUCC 40 MG/ML VIAL IV SCH (08:37)
[2021-09-30] MEDS: THIAMINE HCL 100MG TABLET PO SCH (08:37)
[2021-09-30] MEDS: MULTIVITAMINS,THER W-MINERALS TABLET PO SCH (08:37)
[2021-09-30] MEDS: GUAIFENESIN 600MG ER TABLET PO SCH ×2 (08:37→22:32)
[2021-09-30] MEDS: FOLIC ACID 1MG TABLET PO SCH (08:38)
[2021-09-30] MEDS: CEFEPIME 2,000 MG in DEXT 5% WATER 100 ML IV SCH ×2 (11:59→23:14)
[2021-09-30 13:48] LABS: NUCLEATED RED BLOOD CELLS 1 /100 WBC; PLATELET ESTIMATE NORMAL
[2021-09-30] MEDS: ENOXAPARIN 40MG/0.4ML SYR SUBCUT SCH (15:01)
[2021-09-30 15:39] LABS: BG BASE EXCESS 1.9 mmol/L (-2.0-2.0); BG CARBOXYHEMOGLOBIN 1.4 % (0.5-1.5); BG DEOXYHEMOGLOBIN 1.1 % (0.0-5.0); BG FRACTION INSPIRED OXYGEN 50; BG HCO3 ACT 25.9 mmol/L (22.0-26.0); BG METHEMOGLOBIN 0.3 % (0.0-1.5); BG OXYGEN SATURATION 98.9 % (92.0-98.5); BG OXYHEMOGLOBIN 97.2 % (94.0-97.0); BG PCO2 38.9 mmHg (35.0-45.0); BG PH 7.442 (7.350-7.450); BG PO2 109.5 mmHg (75.0-100.0); BG SAMPLE SITE RIGHT RADIAL; BG TOTAL HEMOGLOBIN 14.1 g/dL (12.0-18.0); BG VENT MODE MASK - BIPAP
[2021-09-30] MEDS ORDERED: OXYCODONE HCL/ACETAMINOPHEN 5/325MG TABLET PO PRN (16:30)
[2021-10-01] VITALS (14 sets, daily range): BP systolic 106–148; BP diastolic 41–95
[2021-10-01] MEDS: IPRATROPIUM/ALBUTEROL 0.5-3(2.5)MG/3ML NEB HHN SCH ×5 (01:14→20:05)
[2021-10-01] MEDS: LORAZEPAM 2MG/ML CPJ IV PRN (05:17)
[2021-10-01] MEDS: BLOOD SUGAR DIAGNOSTIC STRIP TEST SCH ×4 (06:00→18:09)
[2021-10-01] MEDS: SULFAMETHOXAZOLE/TRIMETHOPRIM 200-40 MG/5ML 5ML ORAL SYR PO SCH ×2 (09:00→18:11)
[2021-10-01] MEDS: GUAIFENESIN 600MG ER TABLET PO SCH ×2 (11:22→20:40)
[2021-10-01] MEDS: FOLIC ACID 1MG TABLET PO SCH (11:22)
[2021-10-01] MEDS: THIAMINE HCL 100MG TABLET PO SCH (11:22)
[2021-10-01] MEDS: FAMOTIDINE 20MG/2ML VIAL IV SCH ×2 (11:22→18:09)
[2021-10-01] MEDS: MULTIVITAMINS,THER W-MINERALS TABLET PO SCH (11:23)
[2021-10-01] MEDS: METHYLPREDNISOLONE SOD SUCC 40 MG/ML VIAL IV SCH (11:25)
[2021-10-01] MEDS: CEFEPIME 2,000 MG in DEXT 5% WATER 100 ML IV SCH ×2 (12:01→23:03)
[2021-10-01] MEDS: DEXTROSE 50% WATER 50ML SYRINGE IV PRN (13:01)
[2021-10-01] MEDS: ENOXAPARIN 40MG/0.4ML SYR SUBCUT SCH (15:33)
[2021-10-01] MEDS ORDERED: NALOXONE HCL 0.4 MG/ML 1ML VIAL IV PRN (15:45)
[2021-10-01] MEDS: HYDROCODONE/ACETAMINOPHEN 10/325MG TABLET PO PRN (18:10)
[2021-10-02] VITALS (15 sets, daily range): BP systolic 114–166; BP diastolic 75–91
[2021-10-02] MEDS: IPRATROPIUM/ALBUTEROL 0.5-3(2.5)MG/3ML NEB HHN SCH ×4 (00:17→20:44)
[2021-10-02] MEDS: DOCUSATE SODIUM 100MG CAPSULE PO PRN ×2 (00:53→16:26)
[2021-10-02] MEDS: HYDROCODONE/ACETAMINOPHEN 10/325MG TABLET PO PRN ×3 (00:54→16:27)
[2021-10-02] MEDS: BLOOD SUGAR DIAGNOSTIC STRIP TEST SCH ×4 (06:34→18:00)
[2021-10-02] MEDS: FAMOTIDINE 20MG/2ML VIAL IV SCH ×2 (09:33→16:26)
[2021-10-02] MEDS: MULTIVITAMINS,THER W-MINERALS TABLET PO SCH (09:33)
[2021-10-02] MEDS: THIAMINE HCL 100MG TABLET PO SCH (09:33)
[2021-10-02] MEDS: METHYLPREDNISOLONE SOD SUCC 40 MG/ML VIAL IV SCH (09:33)
[2021-10-02] MEDS: GUAIFENESIN 600MG ER TABLET PO SCH ×2 (09:34→20:27)
[2021-10-02] MEDS: FOLIC ACID 1MG TABLET PO SCH (09:34)
[2021-10-02] MEDS: DIAZEPAM 5 MG TABLET PO PRN ×2 (09:34→19:01)
[2021-10-02] MEDS: SULFAMETHOXAZOLE/TRIMETHOPRIM 200-40 MG/5ML 5ML ORAL SYR PO SCH ×2 (09:35→16:27)
[2021-10-02] MEDS: CEFEPIME 2,000 MG in DEXT 5% WATER 100 ML IV SCH (11:26)
[2021-10-02] MEDS ORDERED: GUAI600T44 PO (14:57)
[2021-10-02] MEDS ORDERED: FLUT1DIS3 INH (14:57)
[2021-10-02] MEDS ORDERED: ALBU18HF2 IH (14:57)
[2021-10-02] MEDS ORDERED: FAMO20TA8 MT (14:57)
[2021-10-02] MEDS ORDERED: P20 MT (14:57)
[2021-10-02] MEDS ORDERED: IPRA3AMP9 NEB (14:57)
[2021-10-02] MEDS ORDERED: SULF1TAB48 MT (15:21)
[2021-10-02] MEDS: ENOXAPARIN 40MG/0.4ML SYR SUBCUT SCH (16:27)
[2021-10-03] VITALS (9 sets, daily range): BP systolic 112–156; BP diastolic 71–96
[2021-10-03] MEDS: CEFEPIME 2,000 MG in DEXT 5% WATER 100 ML IV SCH (00:20)
[2021-10-03] MEDS: IPRATROPIUM/ALBUTEROL 0.5-3(2.5)MG/3ML NEB HHN SCH ×2 (01:10→08:52)
[2021-10-03] MEDS: HYDROCODONE/ACETAMINOPHEN 10/325MG TABLET PO PRN ×2 (03:29→09:30)
[2021-10-03] MEDS: BLOOD SUGAR DIAGNOSTIC STRIP TEST SCH ×2 (06:00)
[2021-10-03] MEDS ORDERED: PREDNISONE 20MG TABLET PO SCH (09:00)
[2021-10-03] MEDS: SULFAMETHOXAZOLE/TRIMETHOPRIM 200-40 MG/5ML 5ML ORAL SYR PO SCH (09:30)
[2021-10-03] MEDS: GUAIFENESIN 600MG ER TABLET PO SCH (09:30)
[2021-10-03] MEDS: FAMOTIDINE 20MG/2ML VIAL IV SCH (09:30)
[2021-10-03] MEDS: MULTIVITAMINS,THER W-MINERALS TABLET PO SCH (09:39)
== END 2021-10-03 14:30 | disposition home health service (06) | DRG 890 ==
LOC: ER 08:40 → CVICU 10:04 → ENRESERV 12:56 → 5EST 10-01 07:30
PROVIDERS: ADMIT Internal Medicine; ATTEND Internal Medicine
PROC: 5A1955Z Respiratory Ventilation, Greater than 96 Consecutive Hours (ICD-10-PCS; principal; 2021-09-23)
PROC: 0BH17EZ Insertion of Endotracheal Airway into Trachea, Via Natural or Artificial Opening (ICD-10-PCS; 2021-09-23)
PROC: 02HV33Z Insertion of Infusion Device into Superior Vena Cava, Percutaneous Approach (ICD-10-PCS; 2021-09-26)
PROC: B548ZZA Ultrasonography of Superior Vena Cava, Guidance (ICD-10-PCS; 2021-09-26)
PROC: 5A09357 Assistance with Respiratory Ventilation, Less than 24 Consecutive Hours, Continuous Positive Airway Pressure (ICD-10-PCS; 2021-09-28)
PROC: 5A09357 Assistance with Respiratory Ventilation, Less than 24 Consecutive Hours, Continuous Positive Airway Pressure (ICD-10-PCS; 2021-09-29)
PROC: 5A09357 Assistance with Respiratory Ventilation, Less than 24 Consecutive Hours, Continuous Positive Airway Pressure (ICD-10-PCS; 2021-09-30)
PROC: 5A09357 Assistance with Respiratory Ventilation, Less than 24 Consecutive Hours, Continuous Positive Airway Pressure (ICD-10-PCS; 2021-10-01)
DX: A41.52 Sepsis due to Pseudomonas (principal); B20 Human immunodeficiency virus [HIV] disease; J96.01 Acute respiratory failure with hypoxia; A41.4 Sepsis due to anaerobes; G93.41 Metabolic encephalopathy; J15.1 Pneumonia due to Pseudomonas; J96.02 Acute respiratory failure with hypercapnia; J44.0 Chronic obstructive pulmonary disease with (acute) lower respiratory infection; I11.0 Hypertensive heart disease with heart failure; I50.9 Heart failure, unspecified; J15.8 Pneumonia due to other specified bacteria; E87.2 Acidosis; J44.1 Chronic obstructive pulmonary disease with (acute) exacerbation; G89.29 Other chronic pain; D50.9 Iron deficiency anemia, unspecified; R74.01 Elevation of levels of liver transaminase levels; F41.9 Anxiety disorder, unspecified; I27.20 Pulmonary hypertension, unspecified; I07.1 Rheumatic tricuspid insufficiency; F13.20 Sedative, hypnotic or anxiolytic dependence, uncomplicated; F11.20 Opioid dependence, uncomplicated; K40.90 Unilateral inguinal hernia, without obstruction or gangrene, not specified as recurrent; M54.50 Low back pain, unspecified; Z20.822 Contact with and (suspected) exposure to COVID-19; Z78.1 Physical restraint status; Z79.899 Other long term (current) drug therapy; Z87.891 Personal history of nicotine dependence; Z87.01 Personal history of pneumonia (recurrent); Z86.16 Personal history of COVID-19; Z86.73 Personal history of transient ischemic attack (TIA), and cerebral infarction without residual deficits
CPT/HCPCS: 36415; 36573; 36600; 71045; 76870; 80048; 80053; 80305; 80320; 82375; 82805; 82962; 83036; 83880; 84145; 84478; 84484; 85025; 87070; 87077; 87186; 87426; 92610; 93005; 93970; 93976; 94002; 94003; 94640; 94660; 97162; 99291; C1725; C1893; C9803; J0456; J0692; J0696; J1580; J1650; J2060; J2250; J2270; J2704; J2920; J2930; J3010; J3490; J7060; J7512; A4315; G0480

== ENCOUNTER 2022-02-20 23:58 | Inpatient (IN) | payer MEDICARE, OTHER ==
[~2022-02-20] VITALS: Ht 170.2 cm; Wt 53.6 kg
[~2022-02-20 23:58] MED LIST changes: +GUAI600T44 PO; +SULF1TAB48 MT
[2022-02-21] MEDS ORDERED: MAGNESIUM 2 G PREMIX 50 ML IV STA (00:04)
[2022-02-21] MEDS ORDERED: ALBUTEROL (0.083%) 2.5MG/3ML NEB HHN STA (00:04)
[2022-02-21] MEDS ORDERED: IPRATROPIUM BROMIDE (0.02%) 0.5MG/2.5ML NEB HHN STA (00:04)
[2022-02-21] MEDS ORDERED: HYDROCODONE/ACETAMINOPHEN 5/325MG TABLET PO STA (00:04)
[2022-02-21] MEDS ORDERED: METHYLPREDNISOLONE SOD SUCC 125 MG/2 ML VIAL IV STA (00:04)
[2022-02-21] MEDS ORDERED: ASPIRIN 81MG TABLET PO ONE (00:15)
[2022-02-21 00:57] LABS: BASOPHILS % 0.6 % (0.0-2.0); EOSINOPHILS % 2.4 % (0.0-5.0); HEMATOCRIT. 39.9 % (42.0-52.0); HEMOGLOBIN. 12.8 g/dL (14.0-18.0); LYMPHOCYTES % 37.5 % (20.0-50.0); MEAN CORPUSCULAR HEMOGLOBIN 26.4 pg (28.0-32.0); MEAN CORPUSCULAR VOLUME 82.5 fL (80.0-94.0); MEAN PLATELET VOLUME 7.5 fl (7.4-10.4); MONOCYTES % 7.6 % (2.0-8.0); NEUTROPHILS % 51.9 % (40.0-76.0); PLATELET 234 x1000/uL (130-400); RED BLOOD CELL COUNT 4.84 mill/uL (4.7-6.1)
[2022-02-21 01:00] LABS: CHLORIDE 106 mEq/L (98-107)
[2022-02-21] MEDS ORDERED: METHYLPREDNISOLONE SOD SUCC 125 MG/2 ML VIAL IV NR (02:00)
[2022-02-21] MEDS ORDERED: HYDROCODONE/ACETAMINOPHEN 5/325MG TABLET PO NR (02:00)
[2022-02-21] MEDS ORDERED: OXYCODONE HCL/ACETAMINOPHEN 5/325MG TABLET PO ONE (06:30)
[2022-02-21] MEDS ORDERED: DIPHENHYDRAMINE 50MG/ML VIAL IV PRN (09:30)
[2022-02-21] MEDS ORDERED: CLONIDINE 0.1MG TABLET PO PRN (09:30)
[2022-02-21] MEDS ORDERED: ONDANSETRON HCL 4MG/2ML INJ IV PRN (09:30)
[2022-02-21] MEDS ORDERED: ACETAMINOPHEN 325MG TABLET PO PRN (09:30)
[2022-02-21] MEDS: METHYLPREDNISOLONE SOD SUCC 125 MG/2 ML VIAL IV SCH ×3 (10:42→21:07)
[2022-02-21 12:00] VITALS: BP 144/79
[2022-02-21] MEDS ORDERED: NALOXONE HCL 0.4MG/ML VIAL IV PRN (12:00)
[2022-02-21] MEDS: NICOTINE 21MG PATCH TD SCH (12:06)
[2022-02-21] MEDS: OXYCODONE HCL/ACETAMINOPHEN 5/325MG TABLET PO PRN ×2 (12:07→19:27)
[2022-02-21 16:00] VITALS: BP 157/82
[2022-02-21 16:01] VITALS: BP 144/79
[2022-02-21] MEDS: IPRATROPIUM/ALBUTEROL 0.5-3(2.5)MG/3ML NEB HHN PRN (16:33)
[2022-02-21 20:00] VITALS: BP 148/80
[2022-02-21] MEDS: BUDESONIDE 0.5MG/2ML NEB HHN SCH (20:10)
[2022-02-22] VITALS: BP 120/75
[2022-02-22] MEDS: IPRATROPIUM/ALBUTEROL 0.5-3(2.5)MG/3ML NEB HHN PRN ×4 (00:08→20:30)
[2022-02-22] MEDS: OXYCODONE HCL/ACETAMINOPHEN 5/325MG TABLET PO PRN ×4 (02:44→21:32)
[2022-02-22] MEDS: METHYLPREDNISOLONE SOD SUCC 125 MG/2 ML VIAL IV SCH ×3 (02:45→14:47)
[2022-02-22 04:00] VITALS: BP 151/71
[2022-02-22] MEDS: NICOTINE 21MG PATCH TD SCH (05:42)
[2022-02-22 07:43] LABS: BASOPHILS % 0.1 % (0.0-2.0); HEMATOCRIT. 37.6 % (42.0-52.0); HEMOGLOBIN. 12.4 g/dL (14.0-18.0); LYMPHOCYTES % 10.1 % (20.0-50.0); MEAN CORPUSCULAR HEMOGLOBIN 26.4 pg (28.0-32.0); MEAN PLATELET VOLUME 8.4 fl (7.4-10.4); MONOCYTES % 2.4 % (2.0-8.0); NEUTROPHILS % 87.4 % (40.0-76.0); PLATELET 239 x1000/uL (130-400); RED CELL DISTRIBUTION WIDTH 21.2 % (11.6-14.6)
[2022-02-22 08:00] VITALS: BP 121/96
[2022-02-22] MEDS: DIAZEPAM 5 MG TABLET PO PRN ×3 (08:23→23:29)
[2022-02-22] MEDS: BUDESONIDE 0.5MG/2ML NEB HHN SCH ×2 (08:55→20:29)
[2022-02-22 09:40] LABS: CHLORIDE 100 mEq/L (98-107)
[2022-02-22 12:00] VITALS: BP 157/92
[2022-02-22] MEDS: ENOXAPARIN 30MG/0.3ML SYR SUBCUT SCH (15:36)
[2022-02-22 16:00] VITALS: BP 158/81
[2022-02-22 20:00] VITALS: BP 147/89
[2022-02-22] MEDS: METHYLPREDNISOLONE SOD SUCC 40 MG/ML VIAL IV SCH (21:31)
[2022-02-23] VITALS: BP 149/82
[2022-02-23 04:00] VITALS: BP 148/90
[2022-02-23] MEDS: OXYCODONE HCL/ACETAMINOPHEN 5/325MG TABLET PO PRN ×3 (05:06→17:19)
[2022-02-23] MEDS: METHYLPREDNISOLONE SOD SUCC 40 MG/ML VIAL IV SCH ×2 (06:04→13:06)
[2022-02-23 08:00] VITALS: BP 146/78
[2022-02-23] MEDS: BUDESONIDE 0.5MG/2ML NEB HHN SCH ×2 (08:05→20:54)
[2022-02-23] MEDS: IPRATROPIUM/ALBUTEROL 0.5-3(2.5)MG/3ML NEB HHN PRN ×2 (08:05→20:55)
[2022-02-23] MEDS: DIAZEPAM 5 MG TABLET PO PRN ×2 (08:32→16:30)
[2022-02-23] MEDS: NICOTINE 21MG PATCH TD SCH (08:37)
[2022-02-23 12:00] VITALS: BP 160/101
[2022-02-23] MEDS: ENOXAPARIN 30MG/0.3ML SYR SUBCUT SCH (14:49)
[2022-02-23 16:00] VITALS: BP 155/92
[2022-02-23 20:00] VITALS: BP 120/79
[2022-02-23] MEDS: METHYLPREDNISOLONE SOD SUCC 125 MG/2 ML VIAL IV SCH (21:13)
[2022-02-24] VITALS: BP 123/75
[2022-02-24 04:00] VITALS: BP 112/70
[2022-02-24] MEDS: OXYCODONE HCL/ACETAMINOPHEN 5/325MG TABLET PO PRN ×3 (04:05→18:06)
[2022-02-24] MEDS: DIAZEPAM 5 MG TABLET PO PRN ×2 (05:53→14:40)
[2022-02-24] MEDS: METHYLPREDNISOLONE SOD SUCC 125 MG/2 ML VIAL IV SCH ×2 (05:53→14:40)
[2022-02-24 08:00] VITALS: BP 120/79
[2022-02-24] MEDS: BUDESONIDE 0.5MG/2ML NEB HHN SCH (08:15)
[2022-02-24] MEDS: IPRATROPIUM/ALBUTEROL 0.5-3(2.5)MG/3ML NEB HHN PRN ×2 (08:15→13:50)
[2022-02-24] MEDS: NICOTINE 21MG PATCH TD SCH (09:40)
[2022-02-24 12:00] VITALS: BP 128/81
[2022-02-24] MEDS: ENOXAPARIN 30MG/0.3ML SYR SUBCUT SCH (15:28)
[2022-02-24 16:00] VITALS: BP 112/85
[2022-02-24 17:03] LABS: HEMATOCRIT. 42.3 % (42.0-52.0); HEMOGLOBIN. 13.7 g/dL (14.0-18.0); MEAN CORPUSCULAR HEMOGLOBIN 26.4 pg (28.0-32.0); MEAN CORPUSCULAR VOLUME 81.9 fL (80.0-94.0); MEAN PLATELET VOLUME 7.9 fl (7.4-10.4); PLATELET 265 x1000/uL (130-400); RED BLOOD CELL COUNT 5.17 mill/uL (4.7-6.1); RED CELL DISTRIBUTION WIDTH 21.8 % (11.6-14.6)
[2022-02-24 17:15] LABS: CHLORIDE 102 mEq/L (98-107)
[2022-02-24 20:00] VITALS: BP 115/71
[2022-02-24] MEDS: METHYLPREDNISOLONE SOD SUCC 40 MG/ML VIAL IV SCH (21:54)
[2022-02-25] VITALS (7 sets, daily range): BP systolic 113–144; BP diastolic 64–91
[2022-02-25] MEDS: OXYCODONE HCL/ACETAMINOPHEN 5/325MG TABLET PO PRN ×4 (02:53→21:28)
[2022-02-25 05:26] LABS: PLATELET ESTIMATE NORMAL
[2022-02-25] MEDS: DIAZEPAM 5 MG TABLET PO PRN ×2 (08:21→16:27)
[2022-02-25] MEDS: METHYLPREDNISOLONE SOD SUCC 40 MG/ML VIAL IV SCH (08:21)
[2022-02-25] MEDS: NICOTINE 21MG PATCH TD SCH (08:21)
[2022-02-25] MEDS ORDERED: ALBU18HF2 IH ×3 (12:02→15:25)
[2022-02-25] MEDS ORDERED: DIAZ10TA PO ×2 (12:02)
[2022-02-25] MEDS ORDERED: MED4 MT ×3 (13:18→15:25)
[2022-02-25] MEDS: IPRATROPIUM/ALBUTEROL 0.5-3(2.5)MG/3ML NEB HHN PRN ×2 (14:06→21:29)
[2022-02-25] MEDS ORDERED: DIAZ10TA4 MT (15:25)
[2022-02-25] MEDS: ENOXAPARIN 30MG/0.3ML SYR SUBCUT SCH (15:26)
[2022-02-25] MEDS ORDERED: PREDNISONE 20MG TABLET PO SCH (17:00)
== END 2022-02-26 02:07 | disposition home or self-care (01) | DRG 140 ==
LOC: ER 23:58 → MICUSO 02-21 04:15 → 7WST 02-21 09:00
PROVIDERS: ADMIT Internal Medicine; ATTEND Internal Medicine
DX: J44.1 Chronic obstructive pulmonary disease with (acute) exacerbation (principal); J96.00 Acute respiratory failure, unspecified whether with hypoxia or hypercapnia; I11.0 Hypertensive heart disease with heart failure; Z20.822 Contact with and (suspected) exposure to COVID-19; I50.9 Heart failure, unspecified; G89.29 Other chronic pain; F17.210 Nicotine dependence, cigarettes, uncomplicated; Z79.899 Other long term (current) drug therapy; Z79.51 Long term (current) use of inhaled steroids; Z86.16 Personal history of COVID-19; Z87.01 Personal history of pneumonia (recurrent)
CPT/HCPCS: 36415; 71045; 80048; 80053; 83605; 83880; 84145; 84484; 85025; 87426; 93005; 93970; 94640; 94644; 99291; C9803; J1650; J2920; J2930; J3475; J7512; J7626